=== PATIENT | female | born 1960 | race African-American/Black ===

== ENCOUNTER 2019-06-08 05:15 | Emergency (ER) | payer OTHER, MEDICAID ==
[~2019-06-08] VITALS: Ht 167.6 cm; Wt 81.6 kg
[2019-06-08 05:18] VITALS: BP_SYST 152
--- NOTE | 2019-06-08 05:25 | NUR ---
Patient to ER bed 2 to gown for evaluation. Side rails up.
--- NOTE | 2019-06-08 05:30 | NUR ---
Dr. Wooten bedside for Pt eval
[2019-06-08] MEDS: IPRATROPIUM BROM 0.5 MG/2.5 ML VIAL.NEB (ATROVENT) INH ONE (05:40)
[2019-06-08] MEDS: LevALBUTEROL HCL 1.25 MG/0.5 ML *CONC.* VIAL.NEB (XOPENEX CONC.) INH ONE (05:40)
--- NOTE | 2019-06-08 05:40 | NUR ---
Pt BIB family to ED C/O short of breath, sudden onset today. Pt reports cough x 2 days. No other injuries and or complaints noted VSS no s/s of acute distress Resting on gurney rails up
[2019-06-08] MEDS ORDERED: ASPI-1155 PO (05:42)
[2019-06-08] MEDS ORDERED: RAMI5CAP PO (05:42)
[2019-06-08] MEDS ORDERED: IPRATROPIUM BROM 0.5 MG/2.5 ML VIAL.NEB (ATROVENT) INH ONE (05:46)
[2019-06-08] MEDS ORDERED: LevALBUTEROL HCL 1.25 MG/0.5 ML *CONC.* VIAL.NEB (XOPENEX CONC.) INH ONE (05:46)
[2019-06-08] MEDS: methylPREDNISolone SOD SUCC/PF 62.5 MG/ML VIAL IVP ONE (06:07)
[2019-06-08] MEDS: NACL 0.9% 1,000 ML IV ONE (06:07)
[2019-06-08] MEDS: ALBUTEROL SULFATE 0.083% 2.5 MG/3 ML VIAL.NEB INH ONE ×2 (06:15→06:40)
[2019-06-08 06:23] LABS: BASOPHILS % (AUTO) 0.6 % (0.0-2.0); EOSINOPHILS # (AUTO) 0.5 K/uL (0.0-0.4); EOSINOPHILS % (AUTO) 7.3 % (0.0-4.0); HEMATOCRIT 40.6 % (36-48); HEMOGLOBIN 13.5 g/dL (12.0-16.0); LYMPHOCYTES # (AUTO) 0.5 K/uL (1.0-5.5); LYMPHOCYTES % (AUTO) 7.1 % (20.5-51.5); MEAN CORPUSCULAR HEMOGLOBIN 31 pg (27-31); MEAN CORPUSCULAR HGB CONC 33 % (32-36); MEAN CORPUSCULAR VOLUME 94 fL (79.0-98.0); MONOCYTES # (AUTO) 0.2 K/uL (0.0-1.0); MONOCYTES % (AUTO) 2.9 % (1.7-9.3); NEUTROPHILS % (AUTO) 82.1 % (40.0-70.0); PLATELET COUNT (AUTO) 201 K/uL (130-430); RED BLOOD CELL COUNT(AUTO) 4.34 MIL/uL (4.2-6.2); RED CELL DISTRIBUTION WIDTH 13.6 % (9.0-15.0); WHITE BLOOD COUNT (AUTO) 7.3 K/uL (4.8-10.8)
--- NOTE | 2019-06-08 06:27 | NUR ---
VSS, receiving 2nd breathing tx, well tolerated. family member bedside for support
[2019-06-08 06:37] LABS: CALCIUM 9.6 mg/dL (8.4-11.0); CREATININE 0.79 mg/dL (0.55-1.30); POTASSIUM 3.8 mmol/L (3.5-5.1)
[2019-06-08 06:43] LABS: ALBUMIN 4.5 g/dL (3.4-4.8); TOTAL BILIRUBIN 0.5 mg/dL (0.0-1.0)
[2019-06-08 07:10] VITALS: BP_SYST 133
--- NOTE | 2019-06-08 07:10 | NUR ---
Patient given written and verbal discharge instructions and verbalizes understanding. ER MD discussed with patient the results and treatment provided. Patient in stable condition. ID arm band removed. IV catheter removed intact and dressing applied, no active bleeding. Rx of Prednisone given. Patient educated on pain management and to follow up with PMD. Pain Scale 0/10 Opportunity for questions provided and answered. Medication side effect fact sheet provided.
== END 2019-06-08 07:10 | disposition home or self-care (01) ==
LOC: SED 05:15
DX: J45.901 Unspecified asthma with (acute) exacerbation (principal); J44.9 Chronic obstructive pulmonary disease, unspecified; I10 Essential (primary) hypertension; Z88.0 Allergy status to penicillin
CPT/HCPCS: 36415; 80053; 85025; 94640; 96374; 99285; J2930; J7612; J7613; 96361; 99283

== ENCOUNTER 2019-07-08 09:46 | Emergency (ER) | payer OTHER, MEDICAID ==
[~2019-07-08] VITALS: Ht 167.6 cm; Wt 80.7 kg
[2019-07-08 09:46] VITALS: BP_SYST 142
[~2019-07-08 09:46] MED LIST: ASPI-1155 PO; RAMI5CAP PO
--- NOTE | 2019-07-08 09:50 | NUR ---
BROUGHT BACK TO BED #7 AND TRIAGED. REPORT GIVEN TO JOSSELIN
--- NOTE | 2019-07-08 10:05 | NUR ---
DR OLVERA AT BEDSIDE FOR EVALUATION
[2019-07-08] MEDS ORDERED: IPRA14.73 (10:12)
[2019-07-08] MEDS ORDERED: ALBUTEROL SULFATE 0.083% 2.5 MG/3 ML VIAL.NEB INH ONE (10:15)
--- NOTE | 2019-07-08 10:16 | NUR ---
PATIENT PRESENTS TO THE ER WITH HX OF COUGH AND WHEEZING FOR ONE MONTH; NO TRAUMA, NO OTHER REMARKABLE S/S; PATIENT TO ER #7 AT 1000 AND ERMD EVALUATION AT 1010
[2019-07-08 11:00] VITALS: BP_SYST 142
--- NOTE | 2019-07-08 11:01 | NUR ---
REASSESSMENT BY ERMD; ACI AND DISCHARGE PER ERMD; PATIENT IMPROVED
--- NOTE | 2019-07-08 12:13 | NUR ---
[id number] called [phone] Parekh order, Rx for Augmentin was changed to Levaquin 500 mg PO daily x 10 pills due to pt has Hx of allergies to Penicillin
--- NOTE | 2019-07-08 12:13 | NUR ---
Mau bunn in ED - 07/08/19 at 1214 by [email or web address] [id number] Rx for Augmentin
== END 2019-07-08 11:00 | disposition home or self-care (01) ==
LOC: SED 09:46
DX: J20.9 Acute bronchitis, unspecified (principal); J45.909 Unspecified asthma, uncomplicated; Z79.82 Long term (current) use of aspirin; Z88.0 Allergy status to penicillin
CPT/HCPCS: 71045; 94640; 99283; J7613

== ENCOUNTER 2020-11-19 17:39 | Emergency (ER) | payer MEDICAID, OTHER ==
[~2020-11-19] VITALS: Ht 167.6 cm; Wt 83.9 kg
[~2020-11-19 17:39] MED LIST changes: +IPRA14.73
[2020-11-19 17:48] VITALS: BP_SYST 112
[2020-11-19 18:06] LABS: BILIRUBIN,URINE NEGATIVE (NEGATIVE); BLOOD, URINE NEGATIVE (NEGATIVE); COLOR,URINE YELLOW (YELLOW); GLUCOSE,URINE NEGATIVE (NEGATIVE); KETONES,URINE TRACE (NEGATIVE); LEUKOCYTE ESTERASE ,URINE 2+ (NEGATIVE); NITRITE, URINE NEGATIVE (NEGATIVE); PH,URINE 6.5 (5.0-8.0); PROTEIN URINE NEGATIVE (NEGATIVE); UROBILINOGEN,URINE 0.2 (0.2-1.0)
[2020-11-19 18:07] LABS: CLARITY/URINE SLIGHTLY HAZY (CLEAR)
[2020-11-19 18:42] LABS: BACTERIA,URINE MODERATE /HPF (None Seen); RBC,URINE 0-3 /HPF (0-3); WBC,URINE 20-50 /HPF (0-3)
--- NOTE | 2020-11-19 18:42 | NUR ---
Patient to ER bed 05 to gown for evaluation. Side rails up.
--- NOTE | 2020-11-19 18:44 | NUR ---
Pt brought by self, A&Ox4, pt presents to ER with lower back pain, denies recent trauma, denies burning or pain with urination, respirations even and unlabored, will cont to monitor.
--- NOTE | 2020-11-19 19:28 | NUR ---
Assumed care of patient at change of shift. Introduced self to patient and family, positioned for comfort and safety. Patient c/o back pain 8. Pupils equal and reactive to light bilaterally. No facial droop noted. No smile deficit noted. Speech normal for patient. Patient is alert and oriented to person, place, time. Bilateral hand hyperbaric technologist equal. Bilateral foot push equal. Patient resting quietly. No acute distress noted. Vital signs within normal range. Bed to low position sr up.
--- NOTE | 2020-11-19 19:28 | NUR ---
CARE ENDORSED TO MISAEL CASTELLANOS
[2020-11-19] MEDS ORDERED: KETOROLAC TROMETHAMINE 60 MG/2 ML VIAL IM ONE (20:00)
--- NOTE | 2020-11-19 20:08 | NUR ---
Medicated w/ Toradol 60mg im to Left Deltoid per MD orders. Will cont to monitor and observe for any adverse reaction. Bed to low position sr up, continue to monitor.
--- NOTE | 2020-11-19 20:20 | NUR ---
Patient transported to radiology via wheelchair, accompanied by medical technical writer.
--- NOTE | 2020-11-19 20:38 | NUR ---
Returned from radiology, back to [facility]. Positioned for comfort and safety w/ bed to low position sr up. patient states pain subsided 0/10. Pupils equal and reactive to light bilaterally. No facial droop noted. No smile deficit noted. Speech normal for patient. Patient is alert and oriented to person, place, time. Bilateral hand philosophy lecturer equal. Bilateral foot push equal. continue to monitor.
[2020-11-19] MEDS ORDERED: NITROFURANTOIN MONOHYD/M-CRYST 100 MG CAPSULE (MacroBID) PO ONE (20:45)
--- NOTE | 2020-11-19 20:49 | NUR ---
Medicated w/ macrobid 100mg po per MD orders. Will cont to monitor and observe for any adverse reaction. Continue to monitor.
[2020-11-19] MEDS ORDERED: CYCL-10 PO (20:55)
[2020-11-19] MEDS ORDERED: NAPR-1172 PO (20:55)
[2020-11-19] MEDS ORDERED: NITR-85 PO (20:55)
--- NOTE | 2020-11-19 21:00 | NUR ---
Patient given written and verbal discharge instructions and verbalizes understanding. ER MD discussed with patient the results and treatment provided. Patient in stable condition. ID arm band removed. Rx of flexeril, macrobid, and naproxen given. Patient educated on pain management and to follow up with PMD. Pain Scale 0. Opportunity for questions provided and answered. Medication side effect fact sheet provided.
[2020-11-19 21:03] VITALS: BP_SYST 116
== END 2020-11-19 21:03 | disposition home or self-care (01) ==
LOC: SED 17:39
DX: M54.5 Low back pain (principal); M54.6 Pain in thoracic spine; M25.561 Pain in right knee; M25.562 Pain in left knee; N39.0 Urinary tract infection, site not specified; J45.909 Unspecified asthma, uncomplicated; I10 Essential (primary) hypertension; Z88.0 Allergy status to penicillin; Z79.899 Other long term (current) drug therapy; W17.89XA Other fall from one level to another, initial encounter; Y93.89 Activity, other specified; Y92.89 Other specified places as the place of occurrence of the external cause; Y99.8 Other external cause status
CPT/HCPCS: 72128; 72131; 76376; 81000; 87086; 96372; 99285; J1885